=== PATIENT | female | born 1990 | race Caucasian/White ===

== ENCOUNTER 2023-11-13 13:53 | Emergency (ER) | payer MEDICAID ==
[~2023-11-13] VITALS: Ht 160 cm; Wt 54.5 kg
[2023-11-13 14:12] VITALS: BP 116/61; PULSE 80; RESP 18; TEMP 99.4; O2SAT 99
[2023-11-13] MEDS: PROCHLORPERAZINE 10MG/2ML VIAL IM ONE (17:09)
[2023-11-13] MEDS: KETOROLAC 30MG/ML VIAL IM ONE (17:10)
[2023-11-13] MEDS ORDERED: CYCL10TA21 MT (18:08)
[2023-11-13] MEDS ORDERED: IBUP-2029 MT (18:08)
== END 2023-11-13 18:21 | disposition home or self-care (01) ==
LOC: ER 13:53
DX: R51.9 Headache, unspecified (principal)
CPT/HCPCS: 81025; 96372; 99284; J1885; J0780; Z7610